=== PATIENT | male | born 1965 | race Caucasian/White ===

== ENCOUNTER 2020-11-21 10:10 | Day surgery (SDC) | payer MEDICAID ==
[~2020-11-21] VITALS: Ht 172.7 cm; Wt 121.7 kg
[2020-11-21] VITALS (16 sets, daily range): BP systolic 99–157; BP diastolic 47–107
[~2020-11-21 10:10] MED LIST: AMLO10TA13 PO; ATOR20TA66 PO; BUPIVAcaine/PF 2.5mg/ml (0.25%) 10ml vial ONE; DOCUMENT DATE & TIME OF BETA-BLOCKER PO ONE; LIDOcaine 1% 30ml preserv. free vial ONE; METO-411 PO; cefazolin/dext.iso 2gm/100ml IV ONE; famotidine 20mg tablet PO ONE; ringers solution, lacted 1,000 ML IV SCH
[2020-11-21 11:10] LABS: BASOPHILS # (AUTO) 0.1 X10'3 (0-0.2); EOSINOPHILS # (AUTO) 0.7 X10'3 (0-0.9); EOSINOPHILS % (AUTO) 9.6 % (0-6); HEMATOCRIT 46.7 % (42.0-52.0); HEMOGLOBIN 15.4 g/dl (14.0-17.9); LYMPHOCYTES # (AUTO) 1.5 X10'3 (1.1-4.8); LYMPHOCYTES % (AUTO) 20.3 % (21-51); MEAN CORPUSCULAR HEMOGLOBIN 29.9 PG (27.0-31.0); MEAN CORPUSCULAR VOLUME 90.6 FL (78-98); MEAN PLATELET VOLUME 8.8 FL (7.4-10.4); MONOCYTES # (AUTO) 0.8 X10'3 (0-0.9); MONOCYTES % (AUTO) 10.6 % (2-12); NEUTROPHILS # (AUTO) 4.3 X10'3 (1.8-7.7); NEUTROPHILS % (AUTO) 58.5 % (42-75); PLATELET COUNT 236 X10'3 (140-440); RED BLOOD COUNT 5.15 X10'6 (4.70-6.10); RED CELL DISTRIBUTION WIDTH 14.4 % (11.5-14.5); WHITE BLOOD COUNT 7.4 X10'3 (4.5-11.0)
[2020-11-21] MEDS ORDERED: morphine 4 MG/ML inj SYRINge IV PRN (11:20)
[2020-11-21] MEDS ORDERED: proCHLORperazine 10 MG/2 ml inj IV PRN (11:20)
[2020-11-21] MEDS ORDERED: morphine 2 MG/ML inj. syringe IV PRN (11:20)
[2020-11-21] MEDS ORDERED: ondansetron/PF 4mg/2ml inj IV PRN (11:20)
[2020-11-21] MEDS ORDERED: meperidine/PF 25mg/ml syringe IV PRN ×3 (11:20)
[2020-11-21] MEDS ORDERED: ringers solution, lacted 1,000 ML IV SCH (11:20)
[2020-11-21 11:24] LABS: ALANINE AMINOTRANSFERASE 46 U/L (12-78); ALBUMIN 3.7 G/DL (3.4-5.0); ALBUMIN/GLOBULIN RATIO 0.9 (1.1-1.5); ALKALINE PHOSPHATASE 107 IU/L (46-116); ANION GAP 5 (8-16); ASPARTATE AMINO TRANSFERASE 38 U/L (10-37); BILIRUBIN,TOTAL 0.7 MG/DL (0.1-1.0); BLOOD UREA NITROGEN 16 MG/DL (7-18); BUN/CREATININE RATIO 12.9 (5.4-32.0); CALCIUM 8.8 MG/DL (8.5-10.1); CHLORIDE 105 MMOL/L (99-107); CREATININE 1.24 MG/DL (0.60-1.10); GLUCOSE 89 MG/DL (70-104); SODIUM 140 MMOL/L (135-145); TOTAL CARBON DIOXIDE 29.8 MMOL/L (24-32); eGFR 60 ML/MIN
[2020-11-21] MEDS ORDERED: fentaNYL/PF 50MCG/1 ML 2ML syringe ONE (12:39)
[2020-11-21] MEDS ORDERED: propofol inj 20 ML IV ONE (12:40)
[2020-11-21] MEDS ORDERED: rocuronium 10mg/ml inj IV ONE (12:40)
[2020-11-21] MEDS ORDERED: midazolam 1 mg/ML 2ml injection ONE (12:40)
[2020-11-21] MEDS ORDERED: sevoflurane 250ml liquid IH ONE (12:43)
[2020-11-21] MEDS ORDERED: dexamethasone sod phosphate 4mg/ml inj. ONE (13:06)
[2020-11-21] MEDS ORDERED: neostigmine methylsulfate 1 MG/ML 10ml vial ONE (13:55)
[2020-11-21] MEDS ORDERED: glycopyrrolate 0.2mg/ml inj ONE (13:56)
[2020-11-21] MEDS ORDERED: ondansetron/PF 4mg/2ml inj ONE (14:00)
[2020-11-21] MEDS ORDERED: sugammadex 200mg/2ml injection IV ONE (14:10)
[2020-11-21] MEDS ORDERED: HYDROcodone/acetaminophen 5mg/325mg tablet PO PRN (14:20)
--- NOTE | 2020-11-21 14:20 | NUR ---
PT ARRIVED TO RECOVERY VIA GURNEY WITH DR. NUÑEZ-REPORT GIVEN, PT SLEEPY AND TRYING TO TURN ON SIDE, ONCE ON SIDE-PT CALM, VSS, PIV 20G TO RIGHT A/C-LR RUNNING, BANDAIDS X 3 TO LAP SITES-CDI, SCDS IN PLACE.
--- NOTE | 2020-11-21 15:30 | NUR ---
PT C/O LOW SUGAR-GIVEN JUICE, BS CHECKED 154, SLIGHT NAUSEA, GIVEN ZOFRAN IV, PT C/O TOO MUCH SUGAR AND WANTING A HAMBURGER ONE MINUTE AND C/O NAUSEA THE NEXT, ENCOURAGED PT TO REST, PIV LR RESTARTED, VSS.
--- NOTE | 2020-11-21 16:46 | NUR ---
PT UP IN BATHROOM ATTEMPTING TO VOID
--- NOTE | 2020-11-21 17:30 | NUR ---
BLADDER SCANNED TO HAVE 63CC AFTER IVF AND WATER TAKEN IN, PT ANXIOUS TO LEAVE-DOESN'T WANT TO WAIT TO PEE, SPOKE WITH DR COLUNGA- OK TO LET PT GO HOME W/O VOID-PT EDUCATED ABOUT NEED TO PEE IN THE NEXT 8 HRS, IF UNABLE GO TO ER-PT UNDERSTANDS AND AGREES. VSS, PT ABLE TO AMBULATE, DRESSED, PIV D/CD -CANULA INTACT, BANDAIDS X 3 TO ABD-CDI, D/C INSTRUCTIONS GIVEN TO PT-ALL QUESTIONS ANSWERED, PT TAKEN WITH ALL BELONGINGS TO VEHICLE, DTR IN LAW TO TRANSPORT.
== END 2020-11-21 17:30 | disposition home or self-care (01) ==
LOC: PAS 10:10
PROVIDERS: ATTEND Surgery
DX: K40.90 Unilateral inguinal hernia, without obstruction or gangrene, not specified as recurrent (principal); K41.90 Unilateral femoral hernia, without obstruction or gangrene, not specified as recurrent; K45.8 Other specified abdominal hernia without obstruction or gangrene; I10 Essential (primary) hypertension; E78.5 Hyperlipidemia, unspecified; E66.9 Obesity, unspecified; Z68.39 Body mass index [BMI] 39.0-39.9, adult; Z79.899 Other long term (current) drug therapy; Z72.89 Other problems related to lifestyle; Z20.822 Contact with and (suspected) exposure to COVID-19; Z82.49 Family history of ischemic heart disease and other diseases of the circulatory system
CPT/HCPCS: 36415; 49650; 80053; 82948; 85025; 87635; 93005; C1781; C9399; C9803; J1100; J2001; J2250; J2405; J2704; J2710; J3010; J3490; S2900; Z7506; Z7508; Z7512; A4215; A4618; J7120